=== PATIENT | male | born 1960 | race Caucasian/White ===

== ENCOUNTER 2019-03-25 02:21 | Emergency (ER) | payer MEDICAID ==
[~2019-03-25] VITALS: Ht 179.1 cm; Wt 73.9 kg
[~2019-03-25 02:21] MED LIST: CLIN150C8 PO; COGENTIN; CYCL-1 PO; CYCL-120 PO; DEPAKOTE; HYDR-4383 PO; IBUP-814 PO; NAPR-56 PO; RISPERDAL; WELLBUTRIN
[2019-03-25] MEDS ORDERED: lidocaine 1.5% w/epinephrine 1:200,000 10ml vial MPF IJ ONE (03:45)
[2019-03-25] MEDS ORDERED: ketamine 10mg/ml 20ml inj 22 MG in normal saline 100ml IV soln 97.8 ML IV ONE (04:15)
[2019-03-25] MEDS ORDERED: LIDOcaine 1% w/epiNEPHrine 1:200,000 30ml vial IJ ONE (04:20)
[2019-03-25 04:27] VITALS: BP 117/66
[2019-03-25] MEDS ORDERED: CLIN300C54 PO (04:52)
[2019-03-25] MEDS ORDERED: IBUP-1986 PO (04:52)
== END 2019-03-25 05:11 | disposition home or self-care (01) ==
LOC: ER 02:22
DX: L02.31 Cutaneous abscess of buttock (principal); G89.29 Other chronic pain; F15.90 Other stimulant use, unspecified, uncomplicated; F17.200 Nicotine dependence, unspecified, uncomplicated; Z59.0 Homelessness; Z56.0 Unemployment, unspecified; Z98.890 Other specified postprocedural states; Z86.14 Personal history of Methicillin resistant Staphylococcus aureus infection
CPT/HCPCS: 10060; 99283

== ENCOUNTER 2019-07-11 19:03 | Emergency (ER) | payer MEDICAID ==
[~2019-07-11] VITALS: Ht 177.8 cm; Wt 79.0 kg
[~2019-07-11 19:03] MED LIST changes: +IBUP-1986 PO
[2019-07-11 19:48] LABS: BASOPHILS # (AUTO) 0.1 X10'3 (0-0.2); BASOPHILS % (AUTO) 0.9 % (0-1); EOSINOPHILS # (AUTO) 0.1 X10'3 (0-0.9); EOSINOPHILS % (AUTO) 1.6 % (0-6); HEMATOCRIT 42.4 % (42.0-52.0); HEMOGLOBIN 14.6 g/dl (14.0-17.9); LYMPHOCYTES # (AUTO) 1.8 X10'3 (1.1-4.8); LYMPHOCYTES % (AUTO) 20.6 % (21-51); MEAN CORPUSCULAR HEMOGLOBIN 29.2 PG (27.0-31.0); MEAN CORPUSCULAR HGB CONC 34.3 g/dL (33.0-36.5); MEAN CORPUSCULAR VOLUME 85.3 FL (78-98); MEAN PLATELET VOLUME 8.1 FL (7.4-10.4); MONOCYTES # (AUTO) 0.2 X10'3 (0-0.9); MONOCYTES % (AUTO) 2.6 % (2-12); NEUTROPHILS # (AUTO) 6.6 X10'3 (1.8-7.7); NEUTROPHILS % (AUTO) 74.3 % (42-75); PLATELET COUNT 216 X10'3 (140-440); RED BLOOD COUNT 4.98 X10'6 (4.70-6.10); RED CELL DISTRIBUTION WIDTH 13.4 % (11.5-14.5); WHITE BLOOD COUNT 8.8 X10'3 (4.5-11.0)
[2019-07-11 20:02] LABS: ALANINE AMINOTRANSFERASE 52 U/L (12-78); ALBUMIN 3.9 G/DL (3.4-5.0); ALBUMIN/GLOBULIN RATIO 0.8 (1.1-1.5); ALKALINE PHOSPHATASE 98 IU/L (46-116); ANION GAP 8 (8-16); ASPARTATE AMINO TRANSFERASE 44 U/L (10-37); BILIRUBIN,TOTAL 0.6 MG/DL (0.1-1.0); BLOOD UREA NITROGEN 14 MG/DL (7-18); BUN/CREATININE RATIO 15.1 (5.4-32.0); CALCIUM 9.2 MG/DL (8.5-10.1); CHLORIDE 101 MMOL/L (99-107); CREATININE 0.93 MG/DL (0.60-1.10); GLUCOSE 82 MG/DL (70-104); POTASSIUM 4.1 MMOL/L (3.5-5.1); SODIUM 139 MMOL/L (135-145); TOTAL CARBON DIOXIDE 29.6 MMOL/L (24-32); TOTAL PROTEIN 9.1 G/DL (6.4-8.2); eGFR 83 ML/MIN
[2019-07-11] MEDS ORDERED: LIDOcaine 1% W/epiNEPHrine 1:200,000 10ml vial IJ ONE (21:45)
[2019-07-11] MEDS ORDERED: CefTRIAXone/D5W-Rocephin 1gm 50 ML IV ONE (21:50)
--- NOTE | 2019-07-11 22:00 | NUR ---
Mary garcia in ED - 07/11/19 at 2301 by GRETA pt removed his own iv on his own
--- NOTE | 2019-07-11 22:00 | NUR ---
I & d SETY UP AT BEDSIDE
[2019-07-11] MEDS ORDERED: CEPH250T PO (22:03)
[2019-07-11] MEDS ORDERED: SULF1TAB49 PO (22:03)
[2019-07-11] MEDS ORDERED: NO HOME MEDS (22:14)
--- NOTE | 2019-07-11 22:15 | NUR ---
CHEST MONITOR ON
--- NOTE | 2019-07-11 22:45 | NUR ---
MD IN ROOM TO I&D ABCESS TO THE [facility] . WAS NOT PRESANT FOR PROCEDURE WHEN RETURNED TO ROOM PT WAS DRESED AND THE WOUND WAS DRESSED. PT REPORTED THE MD DRESSED WOUND. PT AWAITING DISCHARGE
--- NOTE | 2019-07-11 22:50 | NUR ---
went to bedside to hang pt iv ceftriaxone. pt has removed his own iv . notified
[2019-07-11] MEDS ORDERED: CefTRIAXone 1000mg IM Kit (w/lidocaine diluent) IM ONE (23:15)
--- NOTE | 2019-07-11 23:24 | NUR ---
INJECTION GIVEN ON THE RIGHT BUTTOCK NOT THE LEFT THE LEFT IS THE SIDE THAT WAS I & D
[2019-07-11 23:43] VITALS: BP 119/80
== END 2019-07-11 23:25 | disposition home or self-care (01) ==
LOC: ER 19:03
DX: L02.31 Cutaneous abscess of buttock (principal); L03.317 Cellulitis of buttock; R07.89 Other chest pain; G89.29 Other chronic pain; F15.90 Other stimulant use, unspecified, uncomplicated; Z86.14 Personal history of Methicillin resistant Staphylococcus aureus infection; Z86.19 Personal history of other infectious and parasitic diseases; Z98.890 Other specified postprocedural states; Z59.0 Homelessness; Z56.0 Unemployment, unspecified
CPT/HCPCS: 10060; 36415; 71045; 80053; 84484; 85025; 93005; 96372; 99284; J0696

== ENCOUNTER 2019-07-28 16:23 | Emergency (ER) | payer MEDICAID ==
[~2019-07-28] VITALS: Ht 179.1 cm; Wt 77.3 kg
[~2019-07-28 16:23] MED LIST changes: -CLIN150C8 PO; -COGENTIN; -CYCL-1 PO; -CYCL-120 PO; -DEPAKOTE; -HYDR-4383 PO; -IBUP-1986 PO; -IBUP-814 PO; -NAPR-56 PO; +NO HOME MEDS; -RISPERDAL; -WELLBUTRIN
[2019-07-28 16:27] VITALS: BP 151/87
[2019-07-28] MEDS ORDERED: LIDOcaine 1% W/epiNEPHrine 1:200,000 10ml vial IJ ONE (16:45)
[2019-07-28] MEDS ORDERED: HYDROcodone/acetaminophen 10/325mg tab PO ONE (17:20)
[2019-07-28 18:08] LABS: BASOPHILS % (AUTO) 0.3 % (0-1); EOSINOPHILS # (AUTO) 0.1 X10'3 (0-0.9); EOSINOPHILS % (AUTO) 1.4 % (0-6); HEMATOCRIT 39.3 % (42.0-52.0); HEMOGLOBIN 13.2 g/dl (14.0-17.9); LYMPHOCYTES # (AUTO) 1.5 X10'3 (1.1-4.8); MEAN CORPUSCULAR HEMOGLOBIN 28.6 PG (27.0-31.0); MEAN CORPUSCULAR HGB CONC 33.6 g/dL (33.0-36.5); MEAN CORPUSCULAR VOLUME 85.2 FL (78-98); MEAN PLATELET VOLUME 7.8 FL (7.4-10.4); MONOCYTES # (AUTO) 0.9 X10'3 (0-0.9); NEUTROPHILS % (AUTO) 73.3 % (42-75); PLATELET COUNT 231 X10'3 (140-440); RED BLOOD COUNT 4.61 X10'6 (4.70-6.10); RED CELL DISTRIBUTION WIDTH 13.2 % (11.5-14.5); WHITE BLOOD COUNT 9.6 X10'3 (4.5-11.0)
[2019-07-28 18:22] LABS: ALANINE AMINOTRANSFERASE 46 U/L (12-78); ALBUMIN 3.4 G/DL (3.4-5.0); ALBUMIN/GLOBULIN RATIO 0.8 (1.1-1.5); ALKALINE PHOSPHATASE 87 IU/L (46-116); ANION GAP 3 (8-16); ASPARTATE AMINO TRANSFERASE 44 U/L (10-37); BILIRUBIN,TOTAL 0.6 MG/DL (0.1-1.0); BLOOD UREA NITROGEN 21 MG/DL (7-18); BUN/CREATININE RATIO 21.2 (5.4-32.0); CALCIUM 8.7 MG/DL (8.5-10.1); CHLORIDE 102 MMOL/L (99-107); CREATININE 0.99 MG/DL (0.60-1.10); GLUCOSE 128 MG/DL (70-104); POTASSIUM 3.7 MMOL/L (3.5-5.1); SODIUM 138 MMOL/L (135-145); TOTAL CARBON DIOXIDE 32.6 MMOL/L (24-32); TOTAL PROTEIN 7.9 G/DL (6.4-8.2); eGFR 77 ML/MIN
[2019-07-28] MEDS ORDERED: DOXY100C43 PO (18:36)
== END 2019-07-28 19:00 | disposition home or self-care (01) ==
LOC: ER 16:24
DX: L02.416 Cutaneous abscess of left lower limb (principal); L02.31 Cutaneous abscess of buttock; G89.29 Other chronic pain; F15.90 Other stimulant use, unspecified, uncomplicated; Z86.14 Personal history of Methicillin resistant Staphylococcus aureus infection; Z86.19 Personal history of other infectious and parasitic diseases; Z59.0 Homelessness; Z56.0 Unemployment, unspecified; Z98.890 Other specified postprocedural states; Z79.899 Other long term (current) drug therapy
CPT/HCPCS: 10061; 36415; 80053; 85025; 99284

== ENCOUNTER 2020-06-20 05:28 | Emergency (ER) | payer MEDICAID ==
[~2020-06-20] VITALS: Ht 177.8 cm; Wt 77.3 kg
[2020-06-20] MEDS ORDERED: sulfamethoxazole/trimethoprim DS (800/160mg) tablet PO ONE (06:30)
[2020-06-20] MEDS ORDERED: LIDOcaine 1% W/epiNEPHrine 1:100,000 20ml vial SQ ONE (06:30)
--- NOTE | 2020-06-20 06:46 | NUR ---
at bedside doing I/D
[2020-06-20] MEDS ORDERED: HYDROcodone/acetaminophen 10/325mg tab PO ONE (07:05)
[2020-06-20] MEDS ORDERED: HYDR-4353 PO (07:09)
[2020-06-20] MEDS ORDERED: SULF1TAB49 PO (07:09)
[2020-06-20 07:15] VITALS: BP 122/60
== END 2020-06-20 07:24 | disposition home or self-care (01) ==
LOC: ER 05:28
DX: L02.31 Cutaneous abscess of buttock (principal); F15.10 Other stimulant abuse, uncomplicated; G89.29 Other chronic pain; M54.9 Dorsalgia, unspecified; Z87.19 Personal history of other diseases of the digestive system; Z59.0 Homelessness; Z56.0 Unemployment, unspecified; Z79.899 Other long term (current) drug therapy
CPT/HCPCS: 10060; 99283

== ENCOUNTER 2020-08-19 01:37 | Emergency (ER) | payer MEDICAID ==
[~2020-08-19] VITALS: Ht 177.8 cm; Wt 77.0 kg
[2020-08-19 01:41] VITALS: BP 147/72
[2020-08-19] MEDS ORDERED: sulfamethoxazole/trimethoprim DS (800/160mg) tablet PO ONE (02:35)
[2020-08-19] MEDS ORDERED: ceFAZolin 1gm IM kit IM ONE (02:35)
[2020-08-19] MEDS ORDERED: ondansetron 4mg rapidly disintigrating tab PO ONE (02:35)
[2020-08-19] MEDS ORDERED: SULF1TAB49 PO (02:36)
[2020-08-19] MEDS ORDERED: HYDROcodone/acetaminophen 5mg/325mg tablet PO ONE (02:45)
[2020-08-19] MEDS ORDERED: LIDOcaine 1% W/epiNEPHrine 1:100,000 20ml vial ONE (08:00)
== END 2020-08-19 03:13 | disposition home or self-care (01) ==
LOC: ER 01:38
DX: L02.31 Cutaneous abscess of buttock (principal); F15.90 Other stimulant use, unspecified, uncomplicated; G89.29 Other chronic pain; Z86.19 Personal history of other infectious and parasitic diseases; Z86.14 Personal history of Methicillin resistant Staphylococcus aureus infection; Z87.11 Personal history of peptic ulcer disease; Z98.890 Other specified postprocedural states; Z56.0 Unemployment, unspecified; Z59.0 Homelessness; Z79.899 Other long term (current) drug therapy
CPT/HCPCS: 10060; 87070; 87077; 87186; 96372; 99284; J0690

== ENCOUNTER 2021-10-29 04:27 | Emergency (ER) | payer MEDICAID ==
[~2021-10-29] VITALS: Ht 177.8 cm; Wt 76.4 kg
[2021-10-29 04:45] VITALS: BP 137/65
== END 2021-10-29 07:34 | disposition left against medical advice (07) ==
LOC: ER 04:28
DX: L02.31 Cutaneous abscess of buttock (principal); Z53.21 Procedure and treatment not carried out due to patient leaving prior to being seen by health care provider

== ENCOUNTER 2021-12-20 05:40 | Emergency (ER) | payer MEDICAID ==
[~2021-12-20] VITALS: Ht 177.8 cm; Wt 77.3 kg
[2021-12-20 06:28] LABS: ALANINE AMINOTRANSFERASE 34 U/L (12-78); ALBUMIN 3.4 G/DL (3.4-5.0); ALBUMIN/GLOBULIN RATIO 0.8 (1.1-1.5); ALKALINE PHOSPHATASE 100 IU/L (46-116); ANION GAP 5 (8-16); ASPARTATE AMINO TRANSFERASE 34 U/L (10-37); BILIRUBIN,TOTAL 0.2 MG/DL (0.1-1.0); BLOOD UREA NITROGEN 19 MG/DL (7-18); BUN/CREATININE RATIO 19.2 (5.4-32.0); CALCIUM 8.5 MG/DL (8.5-10.1); CHLORIDE 104 MMOL/L (99-107); CREATININE 0.99 MG/DL (0.60-1.10); GLUCOSE 146 MG/DL (70-104); SODIUM 138 MMOL/L (135-145); TOTAL CARBON DIOXIDE 29.5 MMOL/L (24-32); TOTAL PROTEIN 7.9 G/DL (6.4-8.2); eGFR 77 ML/MIN
[2021-12-20 06:32] LABS: CLARITY,URINE CLEAR (Clear); COLOR,URINE YELLOW (Yellow); GLUCOSE, URINE NEGATIVE (Neg); KETONES,URINE NEGATIVE (Neg); LEUKOCYTE ESTERASE ,URINE NEGATIVE (Neg); NITRITES, URINE NEGATIVE (Neg); OCCULT BLOOD,URINE NEGATIVE (Neg); PH,URINE 5.5 (4.8-8.0); PROTEIN,URINE NEGATIVE (Neg); UROBILINOGEN,URINE 0.2 E.U/dL (0.2-1.0)
[2021-12-20 06:34] LABS: UA COLLECTION TYPE CLN CATCH MIDSTREAM
[2021-12-20 06:37] LABS: ETHANOL < 0.010 GM/DL (0.0-0.010)
[2021-12-20 06:42] LABS: URINE AMPHETAMINE SCREEN POSITIVE (Neg); URINE BARBITUATE SCREEN NEGATIVE (Neg); URINE BENZODIAZEPINES SCREEN NEGATIVE (Neg); URINE CANNABINOID SCREEN POSITIVE (Neg); URINE COCAINE SCREEN NEGATIVE (Neg); URINE METHADONE SCREEN NEGATIVE (Neg); URINE OPIATE SCREEN POSITIVE (Neg); URINE PHENCYCLIDINE SCREEN NEGATIVE (Neg)
[2021-12-20 06:44] LABS: BASOPHILS # (AUTO) 0.1 X10'3 (0-0.2); BASOPHILS % (AUTO) 0.8 % (0-1); EOSINOPHILS # (AUTO) 0.3 X10'3 (0-0.9); EOSINOPHILS % (AUTO) 3.1 % (0-6); HEMATOCRIT 36.2 % (42.0-52.0); LYMPHOCYTES # (AUTO) 2.3 X10'3 (1.1-4.8); LYMPHOCYTES % (AUTO) 24.4 % (21-51); MEAN CORPUSCULAR HEMOGLOBIN 27.6 PG (27.0-31.0); MEAN CORPUSCULAR HGB CONC 33.1 g/dL (33.0-36.5); MEAN CORPUSCULAR VOLUME 83.4 FL (78-98); MEAN PLATELET VOLUME 8.3 FL (7.4-10.4); MONOCYTES % (AUTO) 10.9 % (2-12); NEUTROPHILS # (AUTO) 5.7 X10'3 (1.8-7.7); NEUTROPHILS % (AUTO) 60.8 % (42-75); PLATELET COUNT 266 X10'3 (140-440); RED BLOOD COUNT 4.34 X10'6 (4.70-6.10); WHITE BLOOD COUNT 9.3 X10'3 (4.5-11.0)
[2021-12-20 10:19] VITALS: BP 106/74
== END 2021-12-20 10:23 | disposition home or self-care (01) ==
LOC: ER 05:41
DX: F19.920 Other psychoactive substance use, unspecified with intoxication, uncomplicated (principal); G89.29 Other chronic pain; M54.9 Dorsalgia, unspecified; Z86.14 Personal history of Methicillin resistant Staphylococcus aureus infection; Z59.00 Homelessness unspecified; Z56.0 Unemployment, unspecified; Z79.899 Other long term (current) drug therapy
CPT/HCPCS: 36415; 71045; 80053; 80305; 80320; 81003; 84484; 85025; 93005; 99285